=== PATIENT | male | born 1985 | race Caucasian/White ===

== ENCOUNTER 2020-03-08 15:53 | Emergency (ER) | payer BC ==
[~2020-03-08] VITALS: Ht 167.6 cm; Wt 79.5 kg
[2020-03-08] MEDS ORDERED: CYCL10TA2 PO (17:39)
[2020-03-08] MEDS ORDERED: DICL50TA2 PO (17:39)
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
[2020-03-08 18:00] VITALS: BP 142/92
== END 2020-03-08 18:19 | disposition home or self-care (01) ==
LOC: ER 15:53
DX: G89.29 Other chronic pain (principal); M54.2 Cervicalgia
CPT/HCPCS: 99283

== ENCOUNTER → 2020-11-23 | Outpatient (CLI) | payer BC ==
[~2020-11-23] MED LIST: CYCL10TA2 PO; DICL50TA2 PO
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
== END ==
LOC: KCIC MRI 12:20
PROVIDERS: ATTEND Nurse Practitioner Family
DX: S06.9X0S Unspecified intracranial injury without loss of consciousness, sequela (principal); G43.709 Chronic migraine without aura, not intractable, without status migrainosus; X58.XXXS Exposure to other specified factors, sequela
CPT/HCPCS: 70551

== ENCOUNTER 2021-05-23 12:37 | Emergency (ER) | payer BC, MEDICAID, OTHER ==
[~2021-05-23] VITALS: Ht 167.6 cm; Wt 77.1 kg
[~2021-05-23 12:37] MED LIST changes: +CYCL10TA19 PO; -CYCL10TA2 PO
[2021-05-23 12:45] VITALS: BP 124/75
--- NOTE | 2021-05-23 13:22 | PHYS DOC ---
Past Medical History Past Medical History: Other Additional Past Medical Histor: PTSD, TBI Past Surgical History: Other Additional Past Surgical Histo: FACIAL SURGERY Smoking Status: Never Smoker Alcohol Use: None General Adult EDM: Chief Complaint: NECK PAIN HPI: HPI: Patient is a 35-year-old male that presents today with right-sided neck pain. Patient states the pain is started yesterday morning when he woke up with right- sided neck pain, he said he took a nonsteroidal anti-inflammatory that he had, he said that did help with the pain but now he is here for further treatment. Patient states he now has a headache from the neck pain, he denies numbness or tingling in his right arm or any neurovascular issues. Review of Systems: Review of Systems: Constitutional: Denies fever or chills. [] Eyes: Denies change in visual acuity. [] HENT: Denies nasal congestion or sore throat. [] Respiratory: Denies cough or shortness of breath. [] Cardiovascular: Denies chest pain or edema. [] GI: Denies abdominal pain, nausea, vomiting, bloody stools or diarrhea. [] : Denies dysuria. [] Musculoskeletal: Left-sided neck pain Integument: Denies rash. [] Neurologic: Denies headache, focal weakness or sensory changes. [] Endocrine: Denies polyuria or polydipsia. [] Lymphatic: Denies swollen glands. [] Psychiatric: Denies depression or anxiety. [] Heart Score: C/O Chest Pain: No Risk Factors: Risk Factors: DM, Current or recent (<one month) smoker, HTN, HLP, family history of CAD, obesity. Risk Scores: Score 0 - 3: 2.5% MACE over next 6 weeks - Discharge Home Score 4 - 6: 20.3% MACE over next 6 weeks - Admit for Clinical Observation Score 7 - 10: 72.7% MACE over next 6 weeks - Early Invasive Strategies Allergies: Allergies: Allergies Coded Allergies Type Severity Reaction Last Updated Verified No Known Drug Allergies 03/08/20 No Physical Exam: PE: Constitutional: Well developed, well nourished, no acute distress, non-toxic appearance. [] HENT: Normocephalic, atraumatic, bilateral external ears normal, oropharynx moist, no oral exudates, nose normal. [] Eyes: PERRLA, EOMI, conjunctiva normal, no discharge. [] Neck: Normal range of motion, right-sided neck pain noted with palpation, no midline tenderness noted, trigger points are noted in the right trapezius muscle Cardiovascular:Heart rate regular rhythm, no murmur [] Lungs & Thorax: Bilateral breath sounds clear to auscultation [] Abdomen: Bowel sounds normal, soft, no tenderness, no masses, no pulsatile masses. [] Skin: Warm, dry, no erythema, no rash. [] Back: No tenderness, no CVA tenderness. [] Extremities: No tenderness, no cyanosis, no clubbing, ROM intact, no edema. [] Neurologic: Alert and oriented X 3, normal motor function, normal sensory function, no focal deficits noted. [] Psychologic: Affect normal, judgement normal, mood normal. [] Current Patient Data: Vital Signs: Vital Signs Date Time Temp Pulse Resp B/P (MAP) Pulse Ox O2 Delivery O2 Flow Rate FiO2 05/23/21 12:45 97.0 60 18 124/75 (91) 97 Room Air 97.0 EKG: EKG: [] Radiology/Procedures: Radiology/Procedures: [] Course & Med Decision Making: Course & Med Decision Making Pertinent Labs and Imaging studies reviewed. (See chart for details) 1330 patient has no neurovascular deficits, patient has musculoskeletal pain, we will treat the patient with nonsteroidal anti-inflammatory and muscle relaxants and have him follow-up with his primary care one of the listed clinics below on his discharge instructions for further management of this. Patient is agreeable with the plan of care. Nicolas Disclaimer: Nicolas Disclaimer: This electronic medical record was generated, in whole or in part, using a voice recognition dictation system. Departure Departure Impression: Primary Impression: Torticollis, acute Disposition: HOME / SELF CARE / HOMELESS Condition: STABLE Referrals: Damaris ARMSTRONG MD (PCP) Patient Instructions: Torticollis, Acute Additional Instructions: Diclofenac take one tablet twice daily as needed for pain. Take with food may cause stomach upset Flexeril take one tablet three times daily as needed for muscle spasms. Use with caution may cause drowsiness Ice to the affected area 20 minutes on 3-4 times daily for the next 48 hours and then transition to warm moist heat Follow-up with your primary care physician or one of the listed clinics below for further management of your neck pain. [facility] [address] [place] [address] [facility] [address] [place] [address] [facility] [address] [place] [address] [facility] [address] [place] [address] [facility] [address] [place] [address] [facility] [address] [place] [address] [facility] [address] [place] [address] [facility] [address] [place] [address] [facility] [address] [place] [address] [facility] [address] [place] [address] Scripts Cyclobenzaprine Hcl (CYCLOBENZAPRINE HCL) 10 Mg Tablet 10 MG PO TID PRN PRN for MUSCLE SPASMS, #20 TAB Prov: RALPH CASSIDY RADIATION THERAPY TECHNICIAN 05/23/21 Diclofenac Sodium (DICLOFENAC SODIUM) 50 Mg Tablet.dr 1 TAB PO BID, #20 TAB 1 Refill Prov: RALPH CASSIDY RADIATION THERAPY TECHNICIAN 05/23/21 RALPH CASSIDY RADIATION THERAPY TECHNICIAN May 23, 2021 13:22
[2021-05-23] MEDS ORDERED: CYCL10TA19 PO (13:35)
[2021-05-23] MEDS ORDERED: DICL50TA4 PO (13:35)
== END 2021-05-23 13:43 | disposition home or self-care (01) ==
LOC: ER 12:37
DX: M43.6 Torticollis (principal); R51.9 Headache, unspecified; F43.10 Post-traumatic stress disorder, unspecified; Z87.820 Personal history of traumatic brain injury
CPT/HCPCS: 99283